=== PATIENT | female | born 1965 | race Caucasian/White ===

== ENCOUNTER 2018-11-11 06:39 | Inpatient (IN) | payer OTHER ==
[~2018-11-11] VITALS: Ht 165.1 cm; Wt 71.0 kg
--- OUTSIDE RECORDS SUMMARY | 2018-11-11 06:42 | XMS REPORT | Summary of Care ---
Author Author [facility] Outpatient 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 [address] [facility] [address] [place] [phone] Encounter Diagnosis Other abnormal and inconclusive findings on diagnostic imaging of breast (Final) - 04/25/18 Other specified disorders of breast (Final) - Discharge Disposition: Home or Self Care Attending Physician: Rosio Banks DO Referring Physician: Rosio Banks DO Vital Signs No data available for this section Problem List Condition Effective Dates Status Health Status Informant Acute Active bronchitis(Confirmed ) Conjunctivitis(Confi Active rmed) Sore Active throat(Confirmed) Allergies, Adverse Reactions, Alerts No Known Medication Allergies Medications No data available for this section Results No data available for this section Immunizations No data available for this section Procedures No data available for this section Social History Social History Type Response Substance Abuse Use: None. Sexual Sexually active: Yes. Number of current partners 1. Other contraceptive use: Control. Employment/School Status: Employed. Alcohol Current, Type Beer, Wine. Frequency: 3-5 times per week. Smoking Status Never smoker; Exposure to Tobacco Smoke None; Cigarette Smoking Last 365 Days No; Reg Smoking Cessation Counseling No entered on: 06/07/18 Assessment and Plan No data available for this section
--- OUTSIDE RECORDS SUMMARY | 2018-11-11 06:42 | XMS REPORT | Summary of Care ---
Author Author [facility] Address Unknown Phone Unavailable Encounter HQ Encntr_alias(FIN) [id number] Date(s): 05/02/16 - 05/02/16 [facility] [address] [address] [place] [phone] Discharge Disposition: Home or Self Care Attending Physician: Rosio Banks DO Vital Signs No data available for this section Problem List No data available for this section Allergies, Adverse Reactions, Alerts No data available for this section Medications No data available for this section Results No data available for this section Immunizations No data available for this section Procedures No data available for this section Social History No data available for this section Assessment and Plan No data available for this section
--- OUTSIDE RECORDS SUMMARY | 2018-11-11 06:42 | XMS REPORT | Summary of Care ---
Author Author [facility] Primary Care [facility] Organization [facility] Address Unknown Phone Unavailable Encounter HQ No(FIN) [phone] Date(s): 04/12/17 - 04/12/17 [facility] [address], [address] [place] [address] [phone] Discharge Disposition: Home or Self Care Attending Physician: Bert Hilton MD Vital Signs Most recent to 1 oldest [Reference Range]: Height 165.1 cm (04/12/17 8:33 AM) Temperature Oral 98.2 DegF [96.4-99.1 DegF] (04/12/17 8:33 AM) Blood Pressure 139/85 mmHg [90-140/60-90 mmHg] (04/12/17 8:33 AM) Peripheral Pulse 91 bpm Rate [60-100 bpm] (04/12/17 8:33 AM) Weight 74.545 kg (04/12/17 8:33 AM) Body Mass Index 27.35 m2 (04/12/17 8:33 AM) Problem List No data available for this section Allergies, Adverse Reactions, Alerts Substance Reaction Severity Status NKDA Active Medications Bactrim DS 800 mg- 160 mg oral tablet 1 tab, PO, BID, for UTI, X 3 day, # 6 tab, 0 Refill(s), Pharmacy: [facility]/pharmacy # [id number] Start Date: 04/12/17 Stop Date: 04/15/17 Status: Ordered Results No data available for this section [...] Days No; Reg Smoking Cessation Counseling No Assessment and Plan No data available for this section
--- OUTSIDE RECORDS SUMMARY | 2018-11-11 06:42 | XMS REPORT | Summary of Care ---
Author Author [facility] Primary Care [facility] Organization [facility] Primary [facility] Address Unknown Phone Unavailable Encounter HQ No(FIN) [phone] Date(s): 10/19/17 - 10/19/17 [facility] Primary Care [place] [address] [facility] [address] [place] [address] [phone] Discharge Disposition: Home or Self Care Attending Physician: Bert Hilton MD Vital Signs Most recent to 1 oldest [Reference Range]: Height 165.1 cm (10/19/17 8:57 AM) Blood Pressure 152/87 mmHg [90-140/60-90 mmHg] *HI* (10/19/17 8:57 AM) Respiratory Rate 12 BRMIN [14-20 BRMIN] *LOW* (10/19/17 8:57 AM) Peripheral Pulse 65 bpm Rate [60-100 bpm] (10/19/17 8:57 AM) Weight 79.205 kg (10/19/17 8:57 AM) Body Mass Index 29.06 m2 (10/19/17 8:57 AM) Problem List Condition Effective Dates Status Health Status Informant Conjunctivitis(Confi Active rmed) Sore Active throat(Confirmed) Allergies, Adverse Reactions, Alerts Substance Reaction Severity Status NKDA Active Medications cefdinir 300 mg oral capsule 300 mg=1 cap, PO, Q12H, X 7 day, # 14 cap, 0 Refill(s), Pharmacy: [facility]/pharmacy # [id number] Start Date: 10/19/17 Stop Date: 10/26/17 Status: Ordered Tobradex ophthalmic suspension 2 drp, Each Affected Eye, QID, X 5 day, # 5 mL, 0 Refill(s), Pharmacy: [facility]/pharm acy #[id number] Start Date: 10/19/17 Stop Date: 10/24/17 Status: Ordered Results No data available for [...] Reg Smoking Cessation Counseling No entered on: 10/19/17 Assessment and Plan No data available for this section
--- OUTSIDE RECORDS SUMMARY | 2018-11-11 06:42 | XMS REPORT | Summary of Care ---
Author Author [facility] Primary Care [facility] Organization [facility] Primary Care [facility] Address Unknown Phone Unavailable Encounter HQ No(FIN) [phone] Date(s): 06/07/18 - 06/07/18 [facility] [place] [address] [facility], [address] [place], [place] [id number] [place] [address] [phone] Discharge Disposition: Home or Self Care Attending Physician: Bert Hilton MD Vital Signs Most recent to 1 oldest [Reference Range]: Height 167.64 cm (06/07/18 11:02 AM) Temperature Oral 98.1 DegF [96.4-99.1 DegF] (06/07/18 11:02 AM) Blood Pressure 137/100 mmHg [90-140/60-90 mmHg] (06/07/18 11:02 AM) Peripheral Pulse 78 bpm Rate [60-100 bpm] (06/07/18 11:02 AM) Weight 74.602 kg (06/07/18 11:02 AM) Body Mass Index 26.55 m2 (06/07/18 11:02 AM) Problem List Condition Effective Dates Status Health Status Informant Acute Active bronchitis(Confirmed ) Conjunctivitis(Confi Active rmed) Sore Active throat(Confirmed) Allergies, Adverse Reactions, Alerts Substance Reaction Severity Status NKDA Active Medications albuterol 0.083% inhalation solution 2.5 mg, 3 mL, Route: NEB, ONCE, Dosing Weight 74.602, kg, Start date: 06/07/18 1 2:33:00 [employer], Stop date: 06/07/18 12:33:00 [employer]ING Start Date: 06/07/18 Stop Date: 06/07/18 Status: Ordered dexamethasone 4 mg, Route: IM, ONCE, Dosing Weight 74.602, kg, Start date: 06/07/18 11:20:[address], Stop date: 06/07/18 11:20:00 [employer]ARING Start Date: 06/07/18 Stop Date: 06/07/18 Status: Completed Tessalon Perles 100 mg oral capsule 100 mg=1 cap, PO, TID, X 10 day, # 30 cap, 0 Refill(s), Pharmacy: [facility]/pharmacy # [id number] Start Date: 06/07/18 Stop Date: 06/17/18 Status: Ordered Zithromax TRI-DILLAN 500 mg oral tablet 500 mg=1 tab, PO, Daily, X 3 day, # 3 tab, 0 Refill(s), Pharmacy: [facility]/pharmacy # [id number] Start Date: 06/07/18 Stop Date: 06/10/18 Status: Ordered Results No data available for [...]
--- OUTSIDE RECORDS SUMMARY | 2018-11-11 06:42 | XMS REPORT | Continuity of Care Document ---
Author Author [facility] Address Unknown Phone Unavailable Care Team Providers Care Fingerprint Clerk Name Role Phone Ad Knights Information TrueFacet Unavailable Unavailable Problems Problem Status Onset Date Classification Date Reported Comments Source Other abnormal and inconclusive findings on diagnostic imaging of breast 04/26/2018 11/07/2018 [facility] Encounter for screening mammogram for malignant neoplasm of breast 04/10/2018 10/22/2018 [facility] Z12.31 - ENCNTR SCREEN MAMMOGRAM FOR MA Active 03/19/2017 [facility] Source Z13.820 - ENCOUNTER FOR SCREENING FOR OS Active 04/20/2016 [facility] Acute bronchitis Active Problem 11/07/2018 [facility] Conjunctivitis Active Problem 11/07/2018 [facility] Sore throat Active Problem 11/07/2018 [facility] Other specified disorders of breast 11/07/2018 [facility] Medications Medication Details Route Status Patient Instructions Ordering Provider Order Date Source Albuterol 0.83 MG/ML Inhalant Solution 2.5 mg, 3 mL, Route: NEB, ONCE, Dosing Weight 74.602, kg, Start date: 06/07/18 12:33:00 CUSTOMER TRAINER, Stop date: 06/07/18 12:33:00 CUSTOMER TRAINER Inactive 06/07/2018 [facility] Dexamethasone 4 mg, Route: IM, ONCE, Dosing Weight 74.602, kg, Start date: 06/07/18 11:20:00 CUSTOMER TRAINER, Stop date: 06/07/18 11:20:00 CUSTOMER TRAINER Inactive 06/07/2018 [facility] benzonatate 100 MG Oral Capsule [Tessalon Perles] 100 mg=1 cap, PO, TID, X 10 day, # 30 cap, 0 Refill(s), Pharmacy: [facility]/pharmacy #[id number] Active 06/07/2018 [facility] {3 (Azithromycin 500 MG Oral Tablet [Zithromax]) } Pack [TRI-PAKS] 500 mg=1 tab, PO, Daily, X 3 day, # 3 tab, 0 Refill(s), [id number] Active 06/07/2018 [facility] Dexamethasone 1 MG/ML / Tobramycin 3 MG/ML Ophthalmic Suspension [Tobradex] 2 drp, Each Affected Eye, QID, X 5 day, # 5 mL, 0 Refill(s), [id number] Active 10/19/2017 [facility] cefdinir 300 MG Oral Capsule 300 mg=1 cap, PO, Q12H, X 7 day, # 14 cap, 0 Refill(s), [id number] Active 10/19/2017 [facility] Brompheniramine Maleate 0.4 MG/ML / Dextromethorphan Hydrobromide 2 MG/ML / Pseudoephedrine Hydrochloride 6 MG/ML Oral Solution [Bromfed DM] 5 mL, PO, TID, PRN cough, X 8 day, # 120 mL, 0 Refill(s), [id number] No Longer Active 06/01/2017 [facility] Sulfamethoxazole 800 MG / Trimethoprim 160 MG Oral Tablet [Bactrim] 1 tab, PO, BID, for UTI, X 3 day, # 6 tab, 0 Refill(s), [id number] Active 04/12/2017 [facility] Allergies, Adverse Reactions, Alerts Substance Category Reaction Severity Reaction type Status Date Reported Comments Source No Known Medication Allergies Assertion Drug allergy [facility]'s Immunizations No Data Provided for This Section Results No Data Provided for This Section Pathology Reports No Data Provided for This Section Diagnostic Reports Report Value Date Source Breast Complete Uni US COMPLETE ULTRASOUND OF RIGHT BREAST AND AXILLA: 04/19/2018 CLINICAL: 52 yo female recalled from screening mammogram dated 04/03/18 for further evaluation of a right breast focal asymmetry. /R92.8 Other Abnormal And Inconclusive Findings On Diagnostic Imaging Of Breast. COMPARISON:Comparison is made to exams dated: 04/03/2018 mammogram, 03/30/2017 mammogram, 05/02/2016 mammogram, 04/26/2015 mammogram, 04/26/2015 mammogram, and 09/05/2013 mammogram - [facility]. TECHNIQUE: Current study was also evaluated with a Computer Aided Detection (CAD) system. Color flow and real-time ultrasound of the right breast four quadrants, retroareolar, and axilla regions were performed. Cristina scale images of the real-time examination were reviewed. FINDINGS: - 10:00, 7 cm from the nipple, 4 x 3 x 3 mm simple cyst with an adjacent 2 mm simple cyst, corresponding to the mammographic finding. - No abnormalities were seen sonographically in the right axilla. IMPRESSION: BENIGN Benign simple cysts corresponding to the mammographic asymmetry. The patient can resume annual mammogram and ultrasound in 1 year. RECOMMENDATION: BILATERAL MAMMOGRAM AND ULTRASOUND IN 1 YEAR. The patient was informed of the findings and recommendations at the time of the examination. This exam was interpreted at [id number] for [facility]. Yaritza Vallecillo M.D. dh/:04/19/2018 11:11:44 Director Call(s): RT Anat(R)(M), [facility]; Rosa Schmitz RDMS, [facility] letter sent: BI-RADS 1/2 Dense Ultrasound BI-RADS: 2 Benign 04/19/2018 [facility] Breast Mammo Diag UNI w tuyet incl CAD MA UNILATERAL RIGHT DIGITAL DIAGNOSTIC MAMMOGRAM 3D/2D WITH CAD: 04/19/2018 CLINICAL: 52 yo female recalled from screening mammogram dated 04/03/18 for further evaluation of a right breast focal asymmetry. /R92.8 Other Abnormal And Inconclusive Findings On Diagnostic Imaging Of Breast. Current study was evaluated with a Computer Aided Detection (CAD) system. COMPARISON:Comparison is made to exams dated: 04/03/2018 mammogram, 03/30/2017 mammogram, 05/02/2016 mammogram, 04/26/2015 mammogram, 04/26/2015 mammogram, and 09/05/2013 mammogram - [facility]. TECHNIQUE: Digital Breast Tomosynthesis was performed and utilized for Interpretation. Current study was also evaluated with a Computer Aided Detection (CAD) system. FINDINGS: The tissue of right breast is heterogeneously dense, which could obscure detection of small masses. There is a 7 mm bilobed mass versus 2 adjacent masses, at 10:00-11:00, 7 cm from the nipple. There are no suspicious microcalcifications. IMPRESSION: INCOMPLETE: NEEDS ADDITIONAL IMAGING EVALUATION PLEASE SEE SAME DAY ULTRASOUND REPORT FOR ADDITIONAL DETAILS. Yaritza Vallecillo M.D. /:04/19/2018 11:11:44 Director Call(s): Rosalind Heredia, RT(R)(M), [facility]; Rosa Schmitz RDMS, [facility] letter sent: BI-RADS 1/2 Dense Mammogram BI-RADS: 0 Indeterminate 04/19/2018 [facility] Breast Mammo Scrn MAXIMO incl CAD MA BILATERAL DIGITAL SCREENING MAMMOGRAM WITH CAD: 04/03/2018 CLINICAL: /Z12.31 Encounter For Screening Mammogram For Malignant Neoplasm Of Breast. Current study was evaluated with a Computer Aided Detection (CAD) system. COMPARISON:Comparison is made to exams dated: 03/30/2017 mammogram, 05/02/2016 mammogram, 04/26/2015 mammogram, 04/26/2015 mammogram, 09/05/2013 mammogram, and 09/05/2013 mammogram - [facility]. TECHNIQUE: Mammographic views were obtained using digital acquisition. Current study was also evaluated with a Computer Aided Detection (CAD) system. FINDINGS: The tissue of both breasts is heterogeneously dense, which could obscure detection of small masses. There are benign scattered densities and calcifications in both breasts. Bilateral breast implants are intact. There is an asymmetry in the right breast at 11 o'clock middle depth 7 cm from the nipple. This finding is not present on prior CC views. No other significant masses, calcifications, or other findings are seen in either breast. IMPRESSION: INCOMPLETE: NEEDS ADDITIONAL IMAGING EVALUATION RECOMMENDATION:The asymmetry in the right breast likely represents an intramammary node and is indeterminate. Right mammographic additional views ( RCC round spot, RMLO round spot, RML full comboHD) and ultrasound are recommended. This exam was interpreted at [id number] for [facility]. Aden Pastor M.D. mt/:04/08/2018 10:05:05 Director Call(s): Sweetie Mar, [facility] letter sent: BI-RADS 0 Mammogram BI-RADS: 0 Indeterminate 04/03/2018 [facility] Breast Mammo Scrn MAXIMO incl CAD MA BILATERAL DIGITAL SCREENING MAMMOGRAM WITH CAD: 03/30/2017 CLINICAL: Routine/Screen. Current study was evaluated with a Computer Aided Detection (CAD) system. COMPARISON:Comparison is made to exams dated: 05/02/2016 mammogram, 04/26/2015 mammogram, 09/05/2013 mammogram, 08/25/2013 mammogram, 08/08/2013 mammogram, and 02/05/2012 mammogram - [facility]. TECHNIQUE: Mammographic views were obtained using digital acquisition. Current study was also evaluated with a Computer Aided Detection (CAD) system. There are scattered fibroglandular densities in both breasts. FINDINGS: Bilateral breast implants are intact. There is a stable benign focal asymmetry in both breasts. No significant masses, calcifications, or other findings are seen in either breast. There has been no significant interval change. IMPRESSION: BENIGN RECOMMENDATION:There is no mammographic evidence of malignancy. A 1 year screening mammogram is recommended.(03/31/2018) This exam was interpreted at [id number] for [facility]. Hoa mata/carlos:04/02/2017 17:16:08 Director Call(s): RT Anat(R)(M), [facility] letter sent: BI-RADS 1/2 Mammogram BI-RADS: 2 Benign 03/30/2017 [facility] Bone Density DXA Dual Energy MA - Bone Density DXA Dual Energy MA BONE DENSITY EVALUATION: 05/02/2016 CLINICAL DATA: Taking BCP's. RISK FACTORS: race. FINDINGS: Bone density evaluation was performed 05/02/2016 on the AP L1-L4 region of spine using a Hologic unit. The BMD average for the exam is 1.008 g/cm2. The T-score is -0.40 and the Z-score is 0.40. These values indicate 105.0% for age-matched controls. This matches the World Health Organization's criteria for normal bone density and places the patient within normal limits of fracture risk. An additional bone density evaluation was performed 05/02/2016 on the right femur neck using a Hologic unit. The BMD average for the exam is 0.768 g/cm2. The T-score is -0.70 and the Z-score is 0.10. These values indicate 101.0% for age-matched controls. This matches the World Health Organization's criteria for normal bone density and places the patient within normal limits of fracture risk. An additional bone density evaluation was performed 05/02/2016 on the right hip using a Hologic unit. The BMD average for the exam is 0.863 g/cm2. The T-score is -0.70 and the Z-score is -0.20. These values indicate 98.0% for age-matched controls. This matches the World Health Organization's criteria for normal bone density and places the patient within normal limits of fracture risk. An additional bone density evaluation was performed 05/02/2016 on the left femur neck using a Hologic unit. The BMD average for the exam is 0.736 g/cm2. The T- score is -1.00 and the Z-score is -0.20. These values indicate 97.0% for age- matched controls. This matches the World Health Organization's criteria for normal bone density and places the patient within normal limits of fracture risk. An additional bone density evaluation was performed 05/02/2016 on the left hip using a Hologic unit. The BMD average for the exam is 0.851 g/cm2. The T-score is -0.70 and the Z-score is -0.30. These values indicate 96.0% for age-matched controls. This matches the World Health Organization's criteria for normal bone density and places the patient within normal limits of fracture risk. IMPRESSION: BONE DENSITY WITHIN NORMAL LIMITS Patient is at normal risk for fracture. This exam was dictated and interpreted by Sania Ragsdale [address] [place] [address] [address], [place] [address]. Hoa Johnson M.D. sg/:05/02/2016 18:50:21 Director Call: Maureen Barfield, [facility] 05/02/2016 [facility] Breast Complete Maximo US - BREAST COMPLETE MAXIMO US ULTRASOUND OF BOTH BREASTS: 05/02/2016 CLINICAL: HISTORY: 50 yo female presents for annual screening mammogram. She reports no new problems. Bilateral augmentation mammoplasties in 2002. RIGHT breast radial scar excised in 2013. No personal or family history of breast cancer. Taking BCP's. Comparison is made to exams dated: 04/26/2015 mammogram, 09/05/2013 mammogram, 08/25/2013 mammogram, 08/08/2013 mammogram, 02/05/2012 mammogram and 01/09/2012 mammogram - [facility]. Real-time ultrasound of both breasts was performed. RIGHT BREAST FINDINGS: The entire right breast was evaluated including all four quadrants, axillary tail, subareolar region and axilla. No abnormalities that would be suspicious for malignancy were identified. A few scattered subcentimeter cysts were identified. No axillary adenopathy. LEFT BREAST AND AXILLA FINDINGS: The entire left breast was evaluated including all four quadrants, axillary tail, subareolar region and axilla. No abnormalities that would be suspicious for malignancy were identified. No axillary adenopathy. IMPRESSION: BENIGN 1. THERE IS NO DEFINITE RADIOGRAPHIC OR SONOGRAPHIC EVIDENCE TO SUGGEST MALIGNANCY IN EITHER BREAST AND NO SIGNIFICANT CHANGE. RECOMMENDATION: 1. A ROUTINE SCREENING MAMMOGRAM IN ONE YEAR. Hoa Johnson M.D. sg/:05/03/2016 14:36:47 Director Call: Nimco Gore, [facility] This exam was dictated and interpreted by [id number] for [facility]. letter sent: Normal exam Ultrasound BI-RADS: 2 Benign 05/02/2016 [facility] Digital Mammo Screening Maximo MA - DIGITAL MAMMO SCREENING MAXIMO MA BILATERAL DIGITAL SCREENING MAMMOGRAM WITH CAD: 05/02/2016 CLINICAL: HISTORY: 50 yo female presents for annual screening mammogram. She reports no new problems. Bilateral augmentation mammoplasties in 2002. RIGHT breast radial scar excised in 2013. No personal or family history of breast cancer. Taking BCP's. Current study was evaluated with a Computer Aided Detection (CAD) system. Comparison is made to exams dated: 04/26/2015 mammogram, 09/05/2013 mammogram, 08/25/2013 mammogram, 08/08/2013 mammogram, 02/05/2012 mammogram and 01/09/2012 mammogram - [facility]. There are scattered fibroglandular densities in both breasts. The submuscular saline implants appear intact. Stable benign-appearing low-density nodules in the LEFT breast. No significant masses, calcifications, or other findings are seen in either breast. IMPRESSION: BENIGN PLEASE SEE SAME DAY ULTRASOUND REPORT. Hoa Johnson M.D. sg/:05/03/2016 14:36:47 Director Call: Nimco Gore, [facility] This exam was dictated and interpreted by [id number] for [facility]. letter sent: Normal exam Mammogram BI-RADS: 2 Benign 05/02/2016 [facility] Consultation Notes No Data Provided for This Section Discharge Summaries No Data Provided for This Section History and Physicals No Data Provided for This Section Vital Signs Vital Sign Value Date Comments Source BMI Calculated 26.55 06/07/2018 [facility] Group Weight 74.602 06/07/2018 [facility] Systolic (mm Hg) 137 06/07/2018 [facility] Diastolic (mm Hg) 100 06/07/2018 [facility] Temperature Oral (F) 98.1 F 06/07/2018 [facility] Heart Rate 78 06/07/2018 [facility] Height 167.64 cm 06/07/2018 [facility] BMI Calculated 29.06 10/19/2017 [facility] Weight 79.205 10/19/2017 [facility] Height 165.1 cm 10/19/2017 [facility] Systolic (mm Hg) 152 10/19/2017 [facility] Diastolic (mm Hg) 87 10/19/2017 [facility] Respitory Rate 12 10/19/2017 [facility] Heart Rate 65 10/19/2017 [facility] Weight 77.443 06/01/2017 [facility] Temperature Oral (F) 98.3 F 06/01/2017 [facility] Systolic (mm Hg) 130 06/01/2017 [facility] Diastolic (mm Hg) 96 06/01/2017 [facility] Heart Rate 102 06/01/2017 [facility] Height 165.1 cm 04/12/2017 [facility] Systolic (mm Hg) 139 04/12/2017 [facility] Diastolic (mm Hg) 85 04/12/2017 [facility] Heart Rate 91 04/12/2017 [facility] BMI Calculated 27.35 04/12/2017 [facility] Weight 74.545 04/12/2017 [facility] Temperature Oral (F) 98.2 F 04/12/2017 [facility] Encounters Location Location Details Encounter Type Encounter Number Reason For Visit Attending Provider ADM Date DC Date Status Source [facility] Outpatient [facility] - [facility] [id number] Rosio Darren 05/02/2016 05/03/2016 [facility] [id number] [facility] 01/29/2017 [facility] Outpatient [id number] [facility] 02/05/[address] [facility] [place] [place] Outpatient Imaging - [facility] [id number] Rosio Darren 03/30/2017 03/31/2017 [facility] [id number] CHYNA CALDWELLYES 04/12/2017 [facility] [id number] [facility] 04/12/2017 04/13/2017 [facility] Outpatient [id number] [facility] 06/01/2017 [facility] [id number] [facility] 06/01/2017 06/02/2017 [facility] [id number] [facility] [id number] [facility] 10/19/2017 10/20/2017 [facility] Outpatient Imaging - [facility] [id number] Rosio Banks 04/03/2018 04/04/2018 [facility] Outpatient Imaging - [facility] [id number] Rosio Banks 04/19/2018 04/20/2018 [facility] [id number] TARSHA NORIEGA 06/07/2018 [facility] Outpatient [id number] [facility] 06/07/2018 06/08/2018 [facility] Procedures No Data Provided for This Section Assessment and Plan No Data Provided for This Section Plan of Care No Data Provided for This Section Social History Social History Date Source Social History TypeResponse Substance Abuse Use: None. Sexual Sexually active: Yes. Number of current partners 1. Other contraceptive use: Control. Employment/School Status: Employed. Alcohol Current, Type Beer, Wine. Frequency: 3-5 times per week. Smoking Status Never smoker; Exposure to Tobacco Smoke None; Cigarette Smoking Last 365 Days No; Reg Smoking Cessation Counseling No entered on: 06/07/18 01/29/2017 [facility] Social History TypeResponse Substance Abuse Use: None. Sexual Sexually active: Yes. Number of current partners 1. Other contraceptive use: Control. Employment/School Status: Employed. Alcohol Current, Type Beer, Wine. Frequency: 3-5 times per week. Smoking Status Never smoker; Exposure to Tobacco Smoke None; Cigarette Smoking Last 365 Days No; Reg Smoking Cessation Counseling No entered on: 06/07/18 01/29/2017 [facility] Family History No Data Provided for This Section Advance Directives No Data Provided for This Section Functional Status No Data Provided for This Section
--- OUTSIDE RECORDS SUMMARY | 2018-11-11 06:42 | XMS REPORT | Summary of Care ---
Author Author [facility] Outpatient Imaging [facility] Address Unknown Phone Unavailable Care Team Providers Care Maintenance Analyst Name Role Phone Ira Pedersen PCP Encounter HQ Samanta_nicanor(FIN) [id number] Date(s): 04/03/18 - 04/03/18 [facility] Outpatient [facility] [address] [place] [address] [phone] Encounter Diagnosis Encounter for screening mammogram for malignant neoplasm of breast (Final) - 04/09/18 Discharge Disposition: Home or Self Care Attending [...]
--- OUTSIDE RECORDS SUMMARY | 2018-11-11 06:42 | XMS REPORT | Summary of Care ---
Author Author [facility] Organization [facility] Address Unknown Phone Unavailable Encounter HQ Samanta_nicanor(FIN) [id number] Date(s): 06/01/17 - 06/01/17 [facility] [address], [address] [place], [place] [address] [place] [address] [phone] Discharge Disposition: Home or Self Care Attending Physician: Bert Hilton MD Vital Signs Most recent to 1 oldest [Reference Range]: Temperature Oral 98.3 DegF [96.4-99.1 DegF] (06/01/17 2:38 PM) Blood Pressure 130/96 mmHg [90-140/60-90 mmHg] (06/01/17 2:38 PM) Peripheral Pulse 102 bpm Rate [60-100 bpm] *HI* (06/01/17 2:38 PM) Weight 77.443 kg (06/01/17 2:38 PM) Problem List No data available for this section Allergies, Adverse Reactions, Alerts Substance Reaction Severity Status NKDA Active Medications Bromfed DM oral syrup 5 mL, PO, TID, PRN cough, X 8 day, # 120 mL, 0 Refill(s), Pharmacy: [facility]/pharmacy #[id number] Start Date: 06/01/17 Stop Date: 06/09/17 Status: Completed Results No data available for this section [...] Reg Smoking Cessation Counseling No entered on: 04/12/17 Assessment and Plan No data available for this section
--- OUTSIDE RECORDS SUMMARY | 2018-11-11 06:42 | XMS REPORT | Summary of Care ---
Author Author [facility] Outpatient Imaging - [facility] Outpatient Imaging - [facility] Address Unknown Phone Unavailable Encounter HQ No(FIN) [id number] Date(s): 03/30/17 - 03/30/17 [facility] Outpatient Imaging - [facility]'s [id number] [place] [address] [phone] Discharge Disposition: Home or Self Care Attending Physician: Rosio Banks DO Vital Signs No data available for this section Problem List No data available for this section Allergies, Adverse Reactions, Alerts Substance Reaction Severity Status NKDA Active Medications No data available for this section [...]
[2018-11-11 08:13] LABS: BASOPHILS # (AUTO) 0.1 (0.0-0.1); BASOPHILS % 0.4 % (0.0-1.0); EOSINOPHILS # (AUTO) 0.1 (0.0-0.4); EOSINOPHILS % 0.4 % (0.0-6.0); HEMOGLOBIN 13.9 g/dL (12.0-16.0); LYMPHOCYTES # (AUTO) 2.8 (1.0-3.2); LYMPHOCYTES % 20.8 % (18.0-39.1); MEAN CORPUSCULAR HGB CONC 33.1 g/dL (31-35); MEAN CORPUSCULAR VOLUME 93.5 fL (81-99); MONOCYTES # (AUTO) 0.9 (0.2-0.8); MONOCYTES % 6.6 % (4.4-11.3); NEUTROPHILS # (AUTO) 9.6 (2.1-6.9); NEUTROPHILS % 71.4 % (38.7-80.0); PLATELET COUNT 395 x10e3/uL (140-360); RED BLOOD COUNT 4.49 x10e6/uL (3.6-5.1); RED CELL DISTRIBUTION WIDTH 13.8 % (11.7-14.4)
[2018-11-11 08:27] LABS: ALANINE AMINOTRANSFERASE 118 IU/L (0-55); ALBUMIN 3.9 g/dL (3.5-5.0); ALBUMIN/GLOBULIN RATIO 1.2 (0.8-2.0); ALKALINE PHOSPHATASE 105 IU/L (40-150); AMYLASE 42 U/L (25-125); ANION GAP 13.5 mmol/L (8-16); BLOOD UREA NITROGEN 13 mg/dL (7-26); BUN/CREATININE RATIO 16 (6-25); CALCIUM 9.5 mg/dL (8.4-10.2); CARBON DIOXIDE 22 mmol/L (22-29); CHLORIDE 109 mmol/L (98-107); EST GLOMERULAR FILTRATION RATE > 60 ML/MIN (60-); GLUCOSE 119 mg/dL (74-118); LIPASE 39 U/L (8-78); POTASSIUM 4.5 mmol/L (3.5-5.1); SODIUM 140 mmol/L (136-145)
[2018-11-11 09:13] LABS: BILIRUBIN,URINE NEGATIVE (NEGATIVE); CLARITY,URINE SL CLOUDY (CLEAR); COLOR,URINE YELLOW (YELLOW); KETONES,URINE NEGATIVE (NEGATIVE); LEUKOCYTE ESTERASE ,URINE NEGATIVE (NEGATIVE); NITRITE,URINE NEGATIVE (NEGATIVE); PREGNANCY TEST, URINE NEGATIVE (NEGATIVE); PROTEIN,URINE DIPSTICK NEGATIVE (NEGATIVE); URINE UROBILINOGEN 0.2 mg/dL (0.2 - 1)
[2018-11-11] MEDS ORDERED: PIPER-TAZ 3.375 GM 50 ML IV SCH (09:30)
--- NOTE | 2018-11-11 09:38 | Diagnostic Imaging Report ---
EXAM: Right upper quadrant abdominal ultrasound INDICATION: Right upper quadrant pain COMPARISON: None. TECHNIQUE: Transverse and longitudinal images of the right upper quadrant abdomen were obtained FINDINGS: Liver: Size: 15.8 cm in the right midclavicular line, normal Appearance: Normal echogenicity, smooth contour Mass: No focal masses Gallbladder: There is cholelithiasis and mild gallbladder wall thickening to 4 mm. No gallbladder distention or pericholecystic fluid. Negative sonographic Conde's sign. Bile Ducts: Intrahepatic Ducts: No dilatation Extrahepatic Ducts: Common bile duct measures 0.4cm, no dilatation Pancreas: Visualized portions of the pancreatic head, neck and proximal body are normal. Kidney: The right kidney measures 11 cm without evidence of hydronephrosis or stone. Vessels: Aorta: Visualized portions are normal Inferior Vena Cava: Visualized portions are normal Main Portal Vein: 0.9 cm, normal size with hepatopetal flow. Free Fluid: No ascites or pleural effusion IMPRESSION: Cholelithiasis with mild gallbladder wall thickening. No specific evidence of cholecystitis. Liver dimensions are upper limits of normal. Signed by: Johnathan Thomas MD on 11/11/2018 9:34 AM
[2018-11-11] MEDS ORDERED: SODIUM CHLORIDE 0.9% 1000ML 1,000 ML IV SCH (09:46)
[2018-11-11] MEDS ORDERED: ONDANSETRON HCL INJ 2MG/ML 2ML 2 MG/ML VIAL IV PRN ×2 (10:00→16:00)
[2018-11-11] MEDS ORDERED: KETOROLAC TROMETHAMINE 30 MG/ML VIAL IV ONE (10:00)
[2018-11-11] MEDS ORDERED: HYDROMORPHONE 2MG/ML 2 MG/ML ML IV PRN ×2 (10:00→16:00)
[2018-11-11 10:04] LABS: BACTERIA,URINE FEW /HPF; RBC,URINE 0-5 /HPF (0-5)
[2018-11-11 10:05] LABS: EPITHELIAL CELLS,URINE FEW /LPF
[2018-11-11 11:09] VITALS: BP 141/75
--- NOTE | 2018-11-11 11:09 | NUR ---
Pt received from ER at this time. Pt admitted for abdominal pain to right lower quadrant. Pt is aox4 and able to verbalize needs. Denies any pain at this time. Pt is NPO at this time and is on IV fluids. Pt ambulates independently. Consults have been notified by ER.
--- OUTSIDE RECORDS SUMMARY | 2018-11-11 11:45 | XMS REPORT | Continuity of Care Document ---
Author Author [employer] Address Unknown Phone Unavailable Care Team Providers Care Tire Changer Name Role Phone [employer] Information [employer] Unavailable Unavailable Problems Problem Status Onset Date Classification Date Reported Comments Source Other abnormal and inconclusive findings on diagnostic imaging of breast 04/26/2018 11/07/2018 [facility] Encounter for screening mammogram for malignant neoplasm of breast 04/10/2018 10/22/2018 [facility] Z12.31 - ENCNTR SCREEN MAMMOGRAM FOR MA Active 03/19/2017 [facility] Z13.820 - ENCOUNTER FOR SCREENING FOR OS Active 04/20/2016 [employer] Acute bronchitis Active Problem 11/07/2018 [facility] Conjunctivitis Active Problem 11/07/2018 [facility] Sore throat Active Problem 11/07/2018 [facility] Other specified disorders of breast 11/07/2018 [facility] Medications Medication Details Route Status Patient Instructions Ordering Provider Order Date Source Albuterol 0.83 MG/ML Inhalant Solution 2.5 mg, 3 mL, Route: NEB, ONCE, Dosing Weight 74.602, kg, Start date: 06/07/18 12:33:00 METEOROLOGICAL ENGINEER, Stop date: 06/07/18 12:33:00 METEOROLOGICAL ENGINEER Inactive 06/07/2018 Medical Group Dexamethasone 4 mg, Route: IM, ONCE, Dosing Weight 74.602, kg, Start date: 06/07/18 11:20:00 METEOROLOGICAL ENGINEER, Stop date: 06/07/18 11:20:00 METEOROLOGICAL ENGINEER Inactive 06/07/2018 Medical Group benzonatate 100 MG Oral Capsule [Tessalon Perles] 100 mg=1 cap, PO, TID, X 10 day, # 30 cap, 0 Refill(s), Pharmacy: [facility]/pharmacy #[id number] Active 06/07/2018 Medical Group {3 (Azithromycin 500 MG Oral Tablet [Zithromax]) } Pack [TRI-PAKS] 500 mg=1 tab, PO, Daily, X 3 day, # 3 tab, 0 Refill(s), [id number] Active 06/07/2018 [facility] Dexamethasone 1 MG/ML / Tobramycin 3 MG/ML Ophthalmic Suspension [Tobradex] 2 drp, Each Affected Eye, QID, X 5 day, # 5 mL, 0 Refill(s), [id number] Active 10/19/2017 Medical [facility] cefdinir 300 MG Oral Capsule 300 mg=1 cap, PO, Q12H, X 7 day, # 14 cap, 0 Refill(s), [id number] Active 10/19/2017 [facility] Brompheniramine Maleate 0.4 MG/ML / Dextromethorphan Hydrobromide 2 MG/ML / Pseudoephedrine Hydrochloride 6 MG/ML Oral Solution [Bromfed DM] 5 mL, PO, TID, PRN cough, X 8 day, # 120 mL, 0 Refill(s), [id number] No Longer Active 06/01/2017 Medical [facility] Sulfamethoxazole 800 MG / Trimethoprim 160 MG Oral Tablet [Bactrim] 1 tab, PO, BID, for UTI, X 3 day, # 6 tab, 0 Refill(s), [id number] Active 04/12/2017 [facility] Allergies, Adverse Reactions, Alerts Substance Category Reaction Severity Reaction type Status Date Reported Comments Source No Known Medication Allergies Assertion Drug allergy [facility]'s Immunizations No Data Provided for This Section [...] mammogram, 04/26/2015 mammogram, and 09/05/2013 mammogram - [facility]. TECHNIQUE: Current study was also [...] the examination. This exam was interpreted at [id number] for [facility]. Yaritza Vallecillo M.D. dh/:04/19/2018 11:11:44 Intensive Care Unit Nurse(s): RT Anat(R)(M), [facility]; Rosa Schmitz RDMS, [facility] letter sent: BI-RADS 1/2 Dense Ultrasound BI-RADS: 2 Benign 04/19/2018 [facility] Breast Mammo Diag UNI w tuyet incl [...] mammogram, 04/26/2015 mammogram, and 09/05/2013 mammogram - [facility]. TECHNIQUE: Digital Breast Tomosynthesis was performed and [...] ADDITIONAL DETAILS. Yaritza Vallecillo M.D. /:04/19/2018 11:11:44 Intensive Care Unit Nurse(s): Rosalind Heredia, RT(R)(M), [facility]; Rosa Schmitz RDMS, [facility] letter sent: BI-RADS 1/2 Dense Mammogram BI-RADS: 0 Indeterminate 04/19/2018 [facility] Breast Mammo Scrn MAXIMO incl CAD MA BILATERAL DIGITAL SCREENING MAMMOGRAM WITH CAD: 04/03/2018 CLINICAL: /Z12.31 Encounter For Screening Mammogram For Malignant Neoplasm Of Breast. Current study was evaluated with a Computer Aided Detection (CAD) system. COMPARISON:Comparison is made to exams dated: 03/30/2017 mammogram, 05/02/2016 mammogram, 04/26/2015 mammogram, 04/26/2015 mammogram, 09/05/2013 mammogram, and 09/05/2013 mammogram - [facility]. TECHNIQUE: Mammographic views were obtained using digital [...] are recommended. This exam was interpreted at [id number] for [facility]. Aden Pastor M.D. mt/:04/08/2018 10:05:05 Intensive Care Unit Nurse(s): Sweetie Mar, [facility] letter sent: BI-RADS 0 Mammogram BI-RADS: 0 Indeterminate 04/03/2018 [facility] Breast Mammo Scrn MAXIMO incl CAD MA BILATERAL DIGITAL SCREENING MAMMOGRAM WITH CAD: 03/30/2017 CLINICAL: Routine/Screen. Current study was evaluated with a Computer Aided Detection (CAD) system. COMPARISON:Comparison is made to exams dated: 05/02/2016 mammogram, 04/26/2015 mammogram, 09/05/2013 mammogram, 08/25/2013 mammogram, 08/08/2013 mammogram, and 02/05/2012 mammogram - [facility]. TECHNIQUE: Mammographic views were obtained using [...] is recommended.(03/31/2018) This exam was interpreted at [id number] for [facility]. Hoa mata/carlos:04/02/2017 17:16:08 Intensive Care Unit Nurse(s): RT Anat(R)(M), [facility] letter sent: BI-RADS 1/2 Mammogram BI-RADS: 2 Benign 03/30/2017 [facility] Bone Density DXA Dual Energy MA - [...] was dictated and interpreted by Sania Ragsdale [address] [place] [address] [address], [place] [address]. Hoa Johnson M.D. sg/:05/02/2016 18:50:21 Intensive Care Unit Nurse: Maureen Barfield, [facility] 05/02/2016 [facility] Breast Complete Maximo US - BREAST COMPLETE [...] mammogram, 02/05/2012 mammogram and 01/09/2012 mammogram - [facility]. Real-time ultrasound of both [...] ONE YEAR. Hoa Johnson M.D. sg/:05/03/2016 14:36:47 Intensive Care Unit Nurse: Nimco Gore, [facility] This exam was dictated and interpreted by [id number] for [facility]. letter sent: Normal exam Ultrasound BI-RADS: 2 Benign 05/02/2016 [facility] Digital Mammo Screening Maximo MA - DIGITAL [...] mammogram, 02/05/2012 mammogram and 01/09/2012 mammogram - [facility]. There are scattered fibroglandular densities in both breasts. The submuscular saline implants appear intact. Stable benign-appearing low-density nodules in the LEFT breast. No significant masses, calcifications, or other findings are seen in either breast. IMPRESSION: BENIGN PLEASE SEE SAME DAY ULTRASOUND REPORT. Hoa Johnson M.D. sg/:05/03/2016 14:36:47 Intensive Care Unit Nurse: Nimco Gore, [facility] This exam was dictated and interpreted by [id number] for [facility]. letter sent: Normal exam Mammogram BI-RADS: 2 Benign 05/02/2016 [facility] Consultation Notes No Data Provided for This [...] Provider ADM Date DC Date Status Source [facility] Outpatient Imaging - [facility] [id number] Rosio Darren 05/02/2016 05/03/2016 [facility] [id number] [facility] 01/29/2017 [facility] Out[facility] [id number] [facility] 02/05/2017 [facility] Outpatient Imaging - [facility] [id number] Rosio Darren 03/30/2017 03/31/2017 [facility] [id number] CHYNA CALDWELLYES 04/12/2017 [facility] [id number] [facility] 04/12/2017 04/13/2017 Medical [facility] Outpatient [id number] [facility] 06/01/2017 [facility] [place] [id number] [facility] 06/01/2017 06/02/2017 Medical [facility] [id number] [facility] [id number] [facility] 10/19/2017 10/20/2017 [facility] Outpatient Imaging - [facility] [id number] Rosio Banks 04/03/2018 04/04/2018 [facility] Outpatient Imaging - [facility] [id number] Rosio Banks 04/19/2018 04/20/2018 [facility] [id number] TARSHA NORIEGA 06/07/2018 [facility] Outpatient [id number] [facility] 06/07/2018 06/08/2018 Medical Group Procedures No [...] Cessation Counseling No entered on: 06/07/18 01/29/2017 [facility] Social History TypeResponse Substance Abuse [...]
--- OUTSIDE RECORDS SUMMARY | 2018-11-11 11:45 | XMS REPORT ---
Author Author [facility] Address Unknown Phone Unavailable Care Team Providers Care Rn Admissions Name Role Phone Devorah OVALLES Unavailable Unavailable Problems This patient has no known problems. Allergies, Adverse Reactions, Alerts This patient has no known allergies or adverse reactions. Medications This patient has no known medications. Results Test Description Test Time Test Comments Text Results Atomic Results Result Comments US GALLBLADDER 2018-11-11 09:27:00 [place] [address] Patient Name: BLANKA JOHNSON MR #: [id number] : 1965 Age/Sex: 53/F Req #: [id number] Adm Physician: Ordered by: MAHESH OVALLES MD Report #: [id number] Location: ER Room/Bed: Procedure: [id number] US/US GALLBLADDER Exam Date: 11/11/18 Exam Time: 0846 REPORT STATUS: Signed EXAM: Right upper quadrant abdominal ultrasound INDICATION: Right upper quadrant pain COMPARISON: None. TECHNIQUE: Transverse and longitudinal images of the right upper quadrant abdomen were obtained FINDINGS: Liver: Size: 15.8 cm in the right midclavicular line, normal Appearance: Normal echogenicity, smooth contour Mass: No focal masses Gallbladder: There is cholelithiasis and mild gallbladder wall thickening to 4 mm. No gallbladder distention or pericholecystic fluid. Negative sonographic Conde's sign. Bile Ducts: Intrahepatic Ducts: No dilatation Extrahepatic Ducts: Common bile duct measures 0.4cm, no dilatation Pancreas: Visualized portions of the pancreatic head, neck and proximal body are normal. Kidney: The right kidney measures 11 cm without evidence of hydronephrosis or stone. Vessels: Aorta: Visualized portions are normal Inferior Vena Cava: Visualized portions are normal Main Portal Vein: 0.9 cm, normal size with hepatopetal flow. Free Fluid: No ascites or pleural effusion IMPRESSION: Cholelithiasis with mild gallbladder wall thickening. No specific evidence of cholecystitis. Liver dimensions are upper limits of normal. Signed by: Jorge Espinoza MD on 11/11/2018 9:34 AM Dictated By: JORGE ESPINOZA MD 3 Transcribed By: KIRAN on 11/11/18933 COPY TO: MAHESH OVALLES MD
[2018-11-11 12:00] VITALS: BP 141/75
--- NOTE | 2018-11-11 13:58 | Consultation ---
DATE OF CONSULTATION: 11/11/2018 Preoperative Consultation HISTORY OF PRESENT ILLNESS: The patient is a pleasant 53-year-old female, admitted complaining of abdominal pain for 4 days associated with some nausea and vomiting. The patient's pain got worse, came to the emergency room, where she had an ultrasound of the abdomen that revealed cholelithiasis. [place] [address]. Liver chemistries reveal some elevation of the transaminases, mild. Ultrasound revealed cholelithiasis. No ductal dilatation. The patient so far had also a cholangio MRCP that revealed no choledocholithiasis. This I have been reviewed with radiologist, the official report is still pending. PAST MEDICAL HISTORY: Unremarkable. PAST SURGICAL HISTORY: . MEDICATIONS: Progesterone supplements. SOCIAL HISTORY: Drinks socially. Does not smoke. She works as an medical accountant price clerk. FAMILY HISTORY: Noncontributory. REVIEW OF SYSTEMS: Significant for what has already been stated. PHYSICAL EXAMINATION: GENERAL: Reveals a 53-year-old female, in no acute distress. HEAD, EYES, EARS, NOSE, AND THROAT: Reveals no acute process. LUNGS: Clear. HEART: Reveals regular sinus rhythm. ABDOMEN: Reveals a soft abdomen. There are no masses. There is a healed Pfannenstiel scar. PELVIC: Deferred. EXTREMITIES: Reveals no clubbing, cyanosis, or edema. NEUROLOGICAL: Nonfocal. IMPRESSION: Cholelithiasis, cholecystitis. PLAN: The plan is to hydrate the patient, give intravenous antibiotics, and proceed with laparoscopic cholecystectomy in a.m. tomorrow. Thank you very much for this consultation. MD AZUL Marion/DELFINO /[id number]
--- NOTE | 2018-11-11 14:00 | NUR ---
Dr. Malone here to see pt and plans to do lap/holly tomorrow. Procedure was explained to patient by Dr. Malone. Pt is to stay NPO.
--- NOTE | 2018-11-11 14:20 | Diagnostic Imaging Report ---
EXAM: MRI of the abdomen without contrast with MRCP INDICATION: Choledocholithiasis. Gallstones on ultrasound exam. COMPARISON: None. Correlation with US dated 11/11/2018. TECHNIQUE: Multiplanar and multisequence imaging was performed of the abdomen. T1 and T2-weighted images were obtained with and without contrast. T1-weighted in and [id number]. M.R.C.P. technique: Multiplanar, multisequence MRCP was performed, with sequences including coronal turbo spin-echo T1-weighted scans, [facility] MRCP scans, coronal spin, coronal MPR 2[facility], [facility] MRCP GREGG. Discussion: LOWER THORAX: Unremarkable. HEPATOBILIARY: No focal hepatic lesions. No biliary ductal dilation. GALLBLADDER: Multiple small calculi are present within the gallbladder lumen the gallbladder wall is SPLEEN: No splenomegaly. PANCREAS: No focal masses or ductal dilatation. ADRENALS: No adrenal nodules. KIDNEYS/URETERS: Kidneys enhance symmetrically. No hydronephrosis. No cystic or solid mass lesions. No stones. GI TRACT: No abnormal distention, wall thickening, or evidence of bowel obstruction. Appendix is normal. LYMPH NODES: No lymphadenopathy. VESSELS: Unremarkable. PERITONEUM / RETROPERITONEUM: No free air or fluid. BONES: Unremarkable. SOFT TISSUES: Bilateral breast implants. IMPRESSION: 1. Cholelithiasis. Mild diffuse gallbladder wall-thickening is nonspecific, may reflect chronic cholecystitis in the proper clinical setting. 2. No choledocholithiasis as per clinical query. Signed by: Dr. Santosh Carlton M.D. on 11/11/2018 2:17 PM
[2018-11-11 15:54] VITALS: BP 157/81
[2018-11-11] MEDS: PIPER-TAZ 3.375 GM 50 ML IV SCH ×2 (16:08→21:15)
--- NOTE | 2018-11-11 17:40 | NUR ---
Pt was consented for procedure. Pt to remain NPO at until procedure. Denies any pain at this time. Denies nausea/vomiting.
--- NOTE | 2018-11-11 18:55 | NUR ---
Bedside rounds completed with morning nurse. Pt alert and orient to name. Lying in bed HOB 75 degrees. Denies pain at this time. Call barcenas within reach. Bed low and locked. Will continue to monitor.
[2018-11-11 19:43] VITALS: BP 140/67
[2018-11-11 21:00] VITALS: BP 140/67
[2018-11-11] MEDS: SODIUM CHLORIDE 0.9% 1000ML 1,000 ML IV SCH (21:15)
[2018-11-11 23:21] VITALS: BP 133/62
--- NOTE | 2018-11-11 23:21 | NUR ---
Patient arrived to unit via wheelchair. No issues or concerns. Oriented to environment and call light. Instructed to call on the onset of pain or SOB. Call light within reach.
--- NOTE | 2018-11-11 23:25 | NUR ---
PT TRANSFERRED VIA W/C TO OBS ROOM 175. REPORT GIVEN TO NURSE. PT ALERT AND ORIENT PERSON, HOSPITAL, AND TIME. DENIES PAIN AT THIS TIME. NO ACUTE DISTRESS NOTED.
[2018-11-12] VITALS (9 sets, daily range): BP systolic 118–155; BP diastolic 70–77
[2018-11-12] MEDS: SODIUM CHLORIDE 0.9% 1000ML 1,000 ML IV SCH ×3 (00:55→17:27)
--- NOTE | 2018-11-12 00:59 | NUR ---
Report given to [facility] RN for transfer in care. Patient resting, eyes closed, resp even and unlabored. Call light within reach.
--- NOTE | 2018-11-12 01:00 | NUR ---
PATIENT RECEIVED.PATIENT RESTING QUIETLY IN BED. RESP EVEN AND UNLABORED. NO ACUTE DISTRESS NOTED. CALL LIGHT WITHIN REACH. BED LOW/LOCKED. CONTINUE TO MONITOR CLOSELY
[2018-11-12] MEDS: PIPER-TAZ 3.375 GM 50 ML IV SCH ×4 (03:30→19:59)
--- NOTE | 2018-11-12 08:41 | NUR ---
PATIENT GETTING A SHOWER NOW, NOT IN ANY DISTRESS, AT BED SIDE
--- NOTE | 2018-11-12 11:41 | NUR ---
patient off the unit for procedure, Alert and stable
[2018-11-12] MEDS ORDERED: BUPIVACAINE 0.25%/EPI 30ML SDV INJ ONE (12:10)
--- NOTE | 2018-11-12 12:47 | NUR ---
DISCUSSED IN BARRIER ROUNDS, PT IS GOING FOR [facility] WITH Marsha CALLAHAN, PROJECTED DC TOMORROW.
--- NOTE | 2018-11-12 13:10 | NUR ---
Visit made by the Spiritual Care Department Pastoral Visitor, Malinda Abdalla. Pt out of room and no family at bedside. A card was left at the bedside to indicate a missed visit from a member of the Spiritual Care team and to inform the pt and family of the availability of a Beer Merchant 24 hours a day/7 days a week. A software quality analyst will follow up as able. DHARA MADRID Beer Merchant Spiritual Care Department O: [phone] Pager: [phone] ([phone] calling from)
[2018-11-12] MEDS ORDERED: ONDANSETRON HCL INJ 2MG/ML 2ML 2 MG/ML VIAL IV PRN (13:45)
[2018-11-12] MEDS ORDERED: ROCURONIUM BROMIDE 10 MG/ML 5ML VIAL ONE (13:50)
[2018-11-12] MEDS ORDERED: KETOROLAC TROMETHAMINE 30 MG/ML VIAL ONE ×2 (13:50→14:13)
[2018-11-12] MEDS ORDERED: PROPOFOL IV EMULSION 10 MG/ML 20 ML VIAL ONE (13:50)
[2018-11-12] MEDS ORDERED: ONDANSETRON HCL INJ 2MG/ML 2ML 2 MG/ML VIAL ONE (13:50)
[2018-11-12] MEDS ORDERED: LIDOCAINE HCL 2% LOCAL INJ 5 ML SDV VIAL INJ ONE (13:50)
[2018-11-12] MEDS ORDERED: DEXAMETHASONE SOD PHOS INJ 4 MG/ML VIAL ONE (13:50)
[2018-11-12] MEDS ORDERED: SEVOFLURANE INHAL SOLN 250 ML PEN BTL ONE (13:50)
[2018-11-12] MEDS ORDERED: FENTANYL CITRATE/PF 100MCG/2 ML INJ ONE ×2 (14:13→19:58)
--- NOTE | 2018-11-12 14:19 | Operative Report ---
DATE OF PROCEDURE: 11/12/2018 SURGEON: Connor Malone MD PREOPERATIVE DIAGNOSIS: Cholelithiasis, cholecystitis. POSTOPERATIVE DIAGNOSIS: Cholelithiasis, cholecystitis. PROCEDURE PERFORMED: Laparoscopic cholecystectomy. CREDIT COLLECTIONS MANAGER: ANGELO Bishop. ESTIMATED BLOOD LOSS: Minimal. DRAINS: None. COMPLICATION: None. INDICATION AND FINDINGS: This patient is a pleasant 53-year-old female, admitted to the hospital complaining of abdominal pain for several days. Ultrasound of the gallbladder had revealed gallstones, normal ducts. There was minimal elevation of the transaminases. A cholangio MRCP was performed that was normal. The patient was then taken to the operating room for laparoscopic cholecystectomy. Intraoperative findings were cholelithiasis, small stones and cholecystitis. Edema of the gallbladder wall, there was ductal dilatation. DESCRIPTION OF PROCEDURE: With the patient lying on the operative table in the supine position after administration of general anesthesia, she was prepped and draped for laparoscopic cholecystectomy. The procedure was begun by establishing the pneumoperitoneum in the umbilical site after stab wound was made in that location and saline drop test was performed. Pneumoperitoneum was insufflated to 15 mm of pressure and then the 10/11 trocar was placed. Under direct vision with the camera, we placed a 10/11 subxiphoid umbilical trocar site and then finally two lateral working ports in right midclavicular line and right anterior axillary line. The gallbladder was then identified, retracted cephalad with the two lateral working ports and the cystic duct was exposed high in the neck of the gallbladder. The common bile duct junction was seen 360 degrees circumferentially. Cystic artery was also identified, then the cystic duct was transected between titanium clips as was the gallbladder also. Then, the gallbladder was taken down from the liver bed using electrocautery dissection. The gallbladder was then detached and placed in an Endobag and removed. The right upper quadrant was then inspected. There was no bile leak, no bleeding, no apparent bowel injury. There was some small stones that had been spilled during the dissection and those were removed. At this point, we went ahead and irrigated again. There was no evidence of any more stones, bile leak, or bleeding. At this point, we released the pneumoperitoneum and closed the wound using 0-Vicryl for the umbilical fascia, 3-0 Vicryl for the subcutaneous tissue in that location as well as the subxiphoid port and the skin of all the ports was closed using francisca. 0.25% Marcaine with epinephrine was used as local block at the end of the procedure. The patient tolerated the procedure well, taken to recovery room in stable condition. MD AZUL Marion/MODIra /[id number]
--- NOTE | 2018-11-12 14:55 | NUR ---
Patient back from Surgery, AAOx3, 4 Trochar site on abdomen, dressing is intact, no bleeding or drainage, no SOB or distress, keep monitoring, call light in reach, at bed side
[2018-11-12] MEDS ORDERED: MIDAZOLAM HCL 2 MG/2 ML VIAL ONE (19:58)
[2018-11-13 00:07] VITALS: BP 90/52
[2018-11-13] MEDS: SODIUM CHLORIDE 0.9% 1000ML 1,000 ML IV SCH (00:19)
[2018-11-13] MEDS: PIPER-TAZ 3.375 GM 50 ML IV SCH ×2 (02:42→10:00)
[2018-11-13 03:15] VITALS: BP 89/53
--- NOTE | 2018-11-13 06:47 | NUR ---
report given to day nurse. patient is resting comfortably in bed. bed is in lowest position and call barcenas is within reach.
[2018-11-13 08:18] VITALS: BP 92/61
[2018-11-13 09:08] VITALS: BP 92/61
[2018-11-13 12:02] VITALS: BP 147/84
[2018-11-13] MEDS ORDERED: TYLENOL WITH C1 EACH PO (12:21)
--- NOTE | 2018-11-13 14:17 | NUR ---
PT DISCUSSED IN BARRIER ROUNDS, POSSIBLE DISCHARGE TODAY PENDING P [place]
--- NOTE | 2018-12-16 20:55 | Discharge Summary ---
CHIEF COMPLAINT: Abdominal discomfort, bloating. FINAL DIAGNOSES: Cholelithiasis, status post laparoscopic cholecystectomy, gastroesophageal reflux disease. DISPOSITION: Home. HOSPITAL COURSE: A 53-year-old female, no known past medical history. Takes no regular medications. Brought to the ER with a 3-4 day history of upper abdominal discomfort, bloating sensation, nausea with occasional vomiting. No similar symptoms in the past. No fever or chills. She was evaluated extensively in the ER, studies were conducted. Abdomen was showing moderate right upper quadrant tenderness and with further study, she was admitted for care regarding upper abdominal pain, findings of cholelithiasis on x-ray, GERD, will be placing on IV fluids, will be addressing analgesic issues, will be requesting a General Surgical follow. The patient was seen by General Surgery relating to the patient's complaints as well as the diagnostic findings, was seen by Dr. Malone. Following his evaluation, impression was made of cholelithiasis, cholecystitis. Plan is to hydrate the patient, start on IV antibiotics, proceed with a laparoscopic cholecystectomy. Surgical report on 11/12/2018. PREOPERATIVE DIAGNOSES: Cholelithiasis, cholecystitis. POSTOPERATIVE DIAGNOSES: Cholelithiasis, cholecystitis. PROCEDURE: Laparoscopic cholecystectomy. Minimal blood loss. No drains. No complications. The patient tolerated the procedure well, returned to the recovery room in good condition. Prior to the procedure, she was being managed on IMCU, started n.p.o. status, resting comfortably in no distress. She was being given Zosyn, given IV fluids, given medications for pain. Lab studies were being watched closely. She was demonstrating an elevated white cell count initially. The procedure was conducted. Postprocedure, she was continued to be managed in IMCU. She is recovering quite well. Her medications were continuing. Postop care was uneventful. Her diet was being slowly advanced as tolerated and she was cleared for release and she was able to be discharged on 11/13/2018 in stable condition. IMAGING: Gallbladder ultrasound. Findings reveal cholelithiasis with mild gallbladder wall thickening. No specific evidence of cholecystitis. Liver dimensions are upper limits of normal. MRCP reveals cholelithiasis. Mild diffuse slight bladder wall thickening is nonspecific, may reflect chronic cholecystitis in the proper clinical setting, no choledocholithiasis as per clinical query. LABORATORY STUDIES: Shows a CBC, initial white count 26905, H and H normal, platelets were stable. Urine studies unremarkable. Chemistries showing slightly elevated AST 149 and ALT 118. The procedure was carried out in the usual fashion. Postop care was uneventful. She is able to be discharged accordingly. She was discharged home. She will continue on her current diet. No equipments or supplies were necessary. No drain or Gee was needed. Activity level as directed by Dr. Malone as well as myself. She will be looking for signs of temperature of 101.5 or greater, abdominal distention, change in bowel habits, warm, tender to touch surgical sites, foul-smelling drainage from the surgical sites. If these were to occur, she has options of calling Dr. Malone back in his office or returning back to the emergency room. She will be following back with Dr. Malone within 2-3 weeks for postsurgical evaluation. She will be following back up with her PCP within 7-10 days. Dictated by MIKE Lopez Luiz Cabrera MD CC/[facility] /[id number]
== END 2018-11-13 14:22 | disposition home or self-care (01) | DRG 419 ==
LOC: ER 06:39 → ERHOLD 11:42 → MED/SURG3 11:46 → IMCU 23:21 → OBSVTOIN 11-12 13:44
PROC: 0FT44ZZ Resection of Gallbladder, Percutaneous Endoscopic Approach (ICD-10-PCS; principal; 2018-11-12 12:30)
DX: K80.10 Calculus of gallbladder with chronic cholecystitis without obstruction (principal); K21.9 Gastro-esophageal reflux disease without esophagitis
CPT/HCPCS: 36415; 74181; 76705; 80053; 81001; 81025; 82150; 83690; 85025; 88304; 93005; 99284; C1766; G0378; J1100; J1885; J2001; J2250; J2405; J2543; J3010; J7030